=== PATIENT | male | born 1985 | race Caucasian/White ===

== ENCOUNTER 2016-12-05 10:13 | Emergency (ER) | payer OTHER ==
[2016-12-05 10:30] VITALS: BP 136/83
--- NOTE | 2016-12-05 11:59 | RAD ---
HISTORY: Sore throat COMPARISONS: None VIEWS: 2, frontal and lateral views of the neck FINDINGS: There is straightening of the cervical lordosis. The prevertebral soft tissues are normal. No osseous abnormalities are noted. There is a continuous air column from the pharynx the trachea IMPRESSION: STRAIGHTENING OF THE CERVICAL LORDOSIS
[2016-12-05 12:55] LABS: EBV Response YES
[2016-12-05 16:45] LABS: Manual Entry Verification HAN0055; Mono Internal Control QC Line Present
[2016-12-06 12:16] LABS: EBV Capsid Ag IgG Ab Positive (Negative); EBV Capsid Ag IgM Ab Negative (Negative)
[2016-12-06 21:00] LABS: Immunoglobulin G 1020 mg/dL (767 - 1590)
--- NOTE | 2017-01-13 02:53 | UC ---
Krystle Birch Salem, scribed for Kira Reynolds MD on 12/05/16 at 1124 . Throat Pain/Nasal Sandor HPI - HPI Summary HPI Summary: Patient is a 31 y/o male who presents to the with a sore throat since 1 week , worse since onset. He reports throat is tender to touch. He also reports mild , intermittent, nonproductive coughing, swelling, and changes in his voice since 2 days ago, but he denies any rashes. Pt is concerned as he has been chewing tobacco for the last 15 years. He reports that before onset of sx he fell asleep with chew in his mouth. Pt still uses tobacco. He denies a hx of known hpv or mono. Pt reports sinus and upper respiratory illness recently. Patients medication reviewed this visit. - History of Current Complaint Chief Complaint: UCGeneralIllness Stated Complaint: SORE THROAT Time Seen by Provider: 12/05/16 11:18 Hx Obtained From: Patient Onset/Duration: Gradual Onset, Lasting Days, Still Present Severity: Moderate Pain Intensity: 4 Pain Scale Used: 0-10 Numeric Cough: Nonproductive Associated Signs & Symptoms: Positive: Negative - Allergies/Home Medications Allergies/Adverse Reactions: Allergies Allergy/AdvReac Type Severity Reaction Status Date / Time No Known Allergies Allergy Verified 12/05/16 10:30 Home Medications: Home Medications Ascorbic Acid TAB* [Vitamin C TAB*] 500 mg PO DAILY 12/05/16 [History Confirmed 12/05/16] PMH/Surg Hx/FS Hx/Imm Hx Previously Healthy: No - see hpi Endocrine History Of: Denies: Diabetes, Thyroid Disease Cardiovascular History Of: Denies: Cardiac Disorders, Hypertension Respiratory History Of: Denies: COPD, Asthma GI/ History Of: Denies: Ulcer - Surgical History Surgical History: Yes Surgery Procedure, Year, and Place: c3 fx at 18 years old - Family History Known Family History: Positive: Other - lymphoma - grandmother. Negative: Hypertension, Diabetes - Social History Alcohol Use: Occasionally Substance Use Type: None, Marijuana Smoking Status (MU): Never Smoked Tobacco Type: Smokeless Tobacco Amount Used/How Often: 1 tin/day Review of Systems Skin: Negative Eyes: Negative ENT: Other - See HPI. Respiratory: Negative Cardiovascular: Negative Gastrointestinal: Negative Genitourinary: Negative Motor: Negative Neurovascular: Negative Musculoskeletal: Negative Neurological: Negative Psychological: Negative All Other Systems Reviewed And Are Negative: Yes Physical Exam Triage Information Reviewed: Yes Appearance: Well-Nourished Vital Signs: Initial Vital Signs Temp 97.4 F 12/05/16 10:25 Pulse 69 12/05/16 10:25 Resp 18 12/05/16 10:25 BP 136/83 12/05/16 10:25 Pulse Ox 98 12/05/16 10:25 Elevated diastolic blood pressure noted. Vital Signs Reviewed: Yes Eye Exam: Normal ENT Exam: Other - see hpi c/o. Mild post pharynx redness, no sores appreciated. Tongue not elevated. Uvula midline. No jacob adenopathy appreciated. Trachea midline. ENT: Positive: TMs normal Neck exam: Normal Neck: Positive: Supple, Nontender Respiratory Exam: Normal Respiratory: Positive: Chest non-tender, Lungs clear, Normal breath sounds, No respiratory distress, No accessory muscle use Cardiovascular Exam: Normal Cardiovascular: Positive: RRR, No Murmur, Pulses Normal, Brisk Capillary Refill Abdominal Exam: Normal Abdomen Description: Positive: Nontender, No Organomegaly, Soft Bowel Sounds: Positive: Present Musculoskeletal: Positive: Strength Intact Neurological Exam: Normal - nonfocal, grossly intact Psychological Exam: Normal - conversing easily and appropriately Skin Exam: Normal - no visible or reported rash Diagnostics - Laboratory Diagnostic Studies Completed/Ordered: Group A Strep Rapid: negative. - Radiology Soft Tissue Neck XR Radiology Interpretation Completed By: Radiologist - IMPRESSION: STRAIGHTENING OF THE CERVICAL LORDOSIS Re-Evaluation - Re-Evaluation First Eval Re-Evaluation Time: 12:29 Comment: Informed pt of results. Throat Pain/Nasal Course/Dx - Course Course Of Treatment: Reviewed ancillary reports with Mr. Echavarria. S/sx suggestive of esophagitis w pain with swallow. Advised that testing today does not exclude more serious issues, such as cancer. Strongly recommended f/u w pcp zakiya. Meanwhile, recommend symptomatic treatment. Will check mono as well. Strongly advised to avoid all tobacco products, including chewing tobacco. Questions as posed answered to the best of my ability. - Differential Dx/Diagnosis Provider Diagnoses: Esophagitis Discharge - Discharge Plan Condition: Stable Disposition: HOME Patient Education Materials: Corrosive Esophagitis (ED) Referrals: Lord VARELA,Shelbi Bentley [Primary Care Provider] - Additional Instructions: Please follow up with your primary care provider per routine - call for appointment this week. Meanwhile, seek medical attention for worse or new problems. . Tests today: soft tissue neck xrays Strep throat test Throat culture Mononucleosis testing Avoid tobacco products of all kind, including chew. Maalox 1 Tablespoon twice daily for 2-3 days. The documentation as recorded by the Krystle alvarenga Salem accurately reflects the service I personally performed and the decisions made by me, Kira Reynolds MD.
== END 2016-12-05 12:16 | disposition home or self-care (01) ==
LOC: UCEAST 10:13
DX: K20.9 Esophagitis, unspecified (principal); F17.220 Nicotine dependence, chewing tobacco, uncomplicated
CPT/HCPCS: 36415; 70360; 82784; 86308; 86664; 86665; 87651; 99211; G0463